=== PATIENT | male | born 1990 | race Caucasian/White ===

== ENCOUNTER → 2021-04-03 | Outpatient (CLI) | payer BC ==
--- NOTE | 2021-04-03 11:41 | CONS ---
CONSULTATION DATE OF SERVICE: 04/03/2021 This 50-year-old gentleman has been evaluated in the sleep center for possible obstructive sleep apnea-hypopnea syndrome. HISTORY OF PRESENT ILLNESS/SLEEP-WAKE EVALUATION: Patient's usual sleep schedule is from 10 or 11 p.m. until 6 or 6:30 a.m. on weekdays and until 8:30 or 9 a.m. on weekends. No problems with falling asleep, although he has a TV set in the bedroom. He usually sleeps on the back and side positions. He has loud snoring and witnessed episodes of stopped breathing during sleep. The patient wakes up with choking up to 4 times at night with up to 2 episodes of nocturia. No history of hypnagogic hallucinations, sleep paralysis or cataplexy. [place] Sleepiness Scale is 9. PAST MEDICAL HISTORY: Hypertension. PAST SURGICAL HISTORY: None. MEDICATIONS: Losartan 50 mg once a day. SOCIAL HISTORY: Negative for smoking. Alcohol consumption occasional. FAMILY HISTORY: Heart problems. REVIEW OF SYSTEMS: No fevers. No double vision. No recent chest pain. No shortness of breath. No abdominal pain. No bleeding episodes. No blood in the urine. No seizure episodes. Snoring, awakenings from sleep, episodes of sleepiness. PHYSICAL EXAMINATION: GENERAL: Pleasant gentleman without distress. VITAL SIGNS: BP 135/80, HR 88, RR 18, height 6 feet 0 inches, weight 333 pounds, body mass index 45, temperature 97.4, oxygen saturation at room air 96%. HEENT: PERRLA, EOMI, evaluation of oropharynx showed tongue protrudes midline. Extremely low position of soft palate; Mallampati IV. NECK: Supple, no JVD. Thyroid is not palpable. Neck is extremely wide at 20-1/2 inches in circumference. LUNGS: Clear to percussion and to auscultation. Good air exchange. No wheezing or rhonchi. HEART: S1, S2 regular. No murmurs, gallops, or rubs. ABDOMEN: Obese. EXTREMITIES: No clubbing or cyanosis. DRUG SAFETY ASSISTANT: Awake, alert, and oriented X3. Cranial nerves 2 to 7 intact. There is no fasciculation or atrophy. noted. No focal deficits observed. IMPRESSION: 1. Loud snoring, witnessed episodes of stopped breathing during sleep, extremely low position of soft palate, Mallampati IV, extremely wide neck at 20-1/2 inches in circumference; obstructive sleep apnea-hypopnea syndrome. 2. Obesity. Body mass index 45. 3. Hypertension. PLAN: 1. Home sleep apnea test for confirmation of obstructive sleep apnea-hypopnea syndrome 2. CPAP/BiPAP titration if sleep study confirms obstructive sleep apnea-hypopnea syndrome. 3. Preferable position during sleep on the side. 4. No driving if patient feels any sleepiness. 5. I will see patient for follow up visit to explain results of testing and following plan. Thank you very much for referring this patient for consultation. Sincerely, Cedric Ferreira MD, PhD, FAASM Diplomat of [place] [employer] Sleep Medicine Board of [place] [employer]visor [facility] [place] MMODL / THADN: [id number] /
== END ==
LOC: SLEEP 10:25
PROVIDERS: ATTEND Internal Medicine
DX: G47.33 Obstructive sleep apnea (adult) (pediatric) (principal); E66.9 Obesity, unspecified; I10 Essential (primary) hypertension; Z68.42 Body mass index [BMI] 45.0-49.9, adult; Z79.899 Other long term (current) drug therapy
CPT/HCPCS: 99202

== ENCOUNTER → 2024-01-10 | Outpatient (CLI) | payer BC ==
--- NOTE | 2024-01-10 12:01 | XR ---
EXAMINATION TYPE: XR KUB DATE OF EXAM: 01/10/2024 COMPARISON: NONE HISTORY: TECHNIQUE: One view abdominal series FINDINGS: The osseous structures are intact. The bowel gas pattern is nonspecific. Lung bases are clear. No definite calcifications overlying the renal outlines. There is a lobulated calcification left pelvis measuring a diameter 5 mm. IMPRESSION: 1. No renal calcifications. However, 5 mm left upper pelvic calcification could be in the course of t he left ureter.
== END | disposition home or self-care (01) ==
LOC: RADXRMAIN 11:39
PROVIDERS: ATTEND Urology
DX: N20.1 Calculus of ureter (principal)
CPT/HCPCS: 74018

== ENCOUNTER → 2024-02-21 | Outpatient (CLI) | payer BC | END | disposition home or self-care (01) | LOC: LABWHC1 07:00 | PROVIDERS: ATTEND Urology | DX: Z01.812 Encounter for preprocedural laboratory examination (principal); N20.1 Calculus of ureter | CPT/HCPCS: 87086 ==

== ENCOUNTER 2024-02-23 10:00 | Day surgery (SDC) | payer BC ==
[~2024-02-23 10:00] MED LIST: DEXAMETHASONE SOD PHOSPHATE 4 MG/ML 1 ML VIAL ONE; GLYCOPYRROLATE 0.2 MG/ML 2 ML VIAL ONE; LACTATED RINGERS 1,000 ML BAG ONE; LIDOCAINE 1% INJ 10MG/ML (20 ML MDV) ONE; MIDAZOLAM 2 MG/2 ML VIAL ONE; NEOSTIGMINE 1 MG/ML 10 ML VIAL ONE; ONDANSETRON 4 MG/2 ML VIAL ONE; PHENYLEPHRINE 10 MG/ML VIAL ONE; PROPOFOL 10 MG/ML 20 ML VIAL IV ONE; ROCURONIUM 10 MG/ML (5 ML VIAL) IV ONE; SUCCINYLCHOLINE CHLORIDE 200 MG/10 ML VIAL IV ONE; ceFAZolin 1 GM/50 ML BAG (PMX) ONE; fentaNYL (PF) 50 MCG/ML 2 ML AMP ONE
--- NOTE | 2024-03-03 15:53 | HP ---
HISTORY AND PHYSICAL PREOPERATIVE DIAGNOSIS: Left ureteral stone. PROCEDURE TO BE PERFORMED: Left ureteroscopy, laser lithotripsy. HISTORY: Mr. Starks is a 33-year-old gentleman who was in the [facility] back in the end of January. He had an x-ray identifying a 5-mm stone below the iliac vessels. He followed up in the office, the stone was still present. We discussed multiple treatment options including spontaneous passage, ureteroscopy, shockwave lithotripsy. The patient wished to proceed with possible shockwave, but then changed his mind and elected to proceed with a left ureteroscopy and laser lithotripsy. The patient comes for this surgical procedure. Risks, complications, and alternatives have been discussed. ALLERGIES: None. MEDICATIONS: 1. Carvedilol 12.5 mg b.i.d. 2. Hydrochlorothiazide 25 mg daily. 3. Losartan 100 mg daily. ALLERGIES: None. PAST SURGICAL HISTORY: Negative. MEDICAL ILLNESSES: Include hypertension and high blood pressure. REVIEW OF SYSTEMS: Negative. PHYSICAL EXAMINATION: GENERAL: He is a pleasant 33-year-old white male, no immediate distress. VITAL SIGNS: He is 331 pounds and 72 inches, blood pressure 118/70, pulse 82. HEENT: Clear. CHEST: Clear to auscultation. HEART: Without murmur or gallop. ABDOMEN: Soft, without mass or organomegaly. GENITOURINARY: Unremarkable. EXTREMITIES: No edema. NEUROLOGICAL: Grossly intact. IMPRESSION: This patient has a 5-mm distal ureteral stone on the left. He comes for left ureteroscopy, laser lithotripsy. MMODL / IJN: [id number] /
--- NOTE | 2024-03-03 15:53 | OP ---
OPERATIVE REPORT DATE OF SERVICE : 02/23/2024 PREOPERATIVE DIAGNOSIS: Left ureteral stone. POSTOPERATIVE DIAGNOSIS: Left ureteral stone. PROCEDURES: Cystoscopy, left ureteroscopy, laser lithotripsy, placement of a 6 x 26 stent. INDICATIONS FOR PROCEDURE: Carlos Starks is 33. He has a 6 mm impacted distal ureteral stone causing intermittent pain. He comes for left ureteroscopy, laser lithotripsy. The stone was seen on KUB preoperatively. DESCRIPTION OF PROCEDURE: The patient was brought to the operating suite, given a general anesthetic. Placed in lithotomy position with a sterile prep and drape. Cystoscopy for oblique lens and 21- Wallisian sheath identifies a normal urethra. The prostate was nonobstructing. The ureteral orifices were both normal. Bladder mucosa was unremarkable. We passed an 0.035 wire up to where on KUB the stone was thought to be and indeed it was impacted. I then dilated the ureteral orifice with a 10-Wallisian cone-tip. I then passed the semi- rigid scope up to the stone. With a 365 micron laser probe, the stone was broken into tiny fragments and flushed out of the ureter. There was a significant amount of edema, where the stone had lodged. Thus a stent will be placed. Through the ureteroscope, an 0.035 wire was passed up into the kidney. The ureteroscope was removed. The wire was backloaded on the cystoscope. Over the wire, a 6 x 26 double-J catheter was passed and coiled in the renal pelvis and in the bladder. The bladder was drained. The patient was awakened and returned to recovery room in good condition. He will be discharged home. Follow up in the office in 1 week for cysto and stent removal. MMODL / IJN: [id number] /
--- NOTE | 2024-03-27 14:13 | XR ---
Patient: Juan Manuel Starks Ordering Physician: Unknown, Unknown ID: [id number] Phone, Pager: Phone: N/A Pager: N/A : 1990 Age/Gender: 33Y, M Primary Location: N/A Procedure: XR KUB Study Date: 02/22 6:15:00 AM EXAMINATION TYPE: XR KUB DATE OF EXAM: 03/05/2024 12:30 PM CLINICAL INDICATION: Presurgical renal stone. COMPARISON: 01/10/2024. TECHNIQUE: One radiographic view of the abdomen was obtained. FINDINGS: The bowel gas pattern is nonspecific without dilated loops of small or large bowel. . Fecal material and gas are demonstrated throughout the colon and rectum. There is no evidence for organomegaly or pneumoperitoneum. The osseous structures are intact. Calcif ication in the left pelvis measuring 6 mm is present. IMPRESSION: 1. Left pelvis calcification possibly representing pelvic phlebolith versus ureteral calculus measur ing 6 mm. Similar to 01/10/2024. 2. No definitive Renal calculi visualized. There is bowel that obscures the kidneys correlate with C T. 3. Nonspecific bowel gas pattern without radiographic evidence for acute process.
--- NOTE | 2024-04-13 10:36 | FL ---
EXAMINATION TYPE: FL guidance operating room DATE OF EXAM: 03/21/2024 8:19 AM COMPARISON: Pre Operative Images if available both CT/MRI or plain film CLINICAL INDICATION: Male, 33 years old with history of LEFT RENAL CALCULI IN OR; TECHNIQUE: FL guidance operating room, multiple fluoroscopic images provided for procedure. Total fluoroscopy time: 33 seconds Total submitted images to PACS: 6 DAP: [id number] mGym2 Gycm2 uGym2 cGycm2 or equivalent. FINDINGS: Multiple intraoperative fluoroscopic images were taken resulting in ureteral stent placement with sup erior pigtail in appropriate position projecting over the renal pelvis. No immediate intraoperative c omplication. Multilevel degeneration changes throughout the spine. IMPRESSION: 1. No evidence for intraoperative complication. 2. Please see the operative/procedural note for further details. [facility], , 04/13/2024 10:33 AM
== END 2024-02-23 10:07 ==
LOC: OR 10:00
PROVIDERS: ATTEND Urology
DX: N20.1 Calculus of ureter (principal); I10 Essential (primary) hypertension; Z79.899 Other long term (current) drug therapy
CPT/HCPCS: 74018

== ENCOUNTER 2024-02-24 03:00 | Emergency (ER) | payer BC ==
[2024-02-24] MEDS ORDERED: ONDANSETRON 4 MG/2 ML VIAL ONE (06:16)
[2024-02-24] MEDS ORDERED: KETOROLAC 15 MG/ML 1 ML VIAL ONE ×2 (06:16→09:51)
[2024-02-24] MEDS ORDERED: HYDROmorphone 0.5 MG/0.5 ML SYRINGE ONE (06:17)
[2024-02-24] MEDS ORDERED: SODIUM CHLORIDE 0.9% 1,000 ML BAG ONE (06:40)
--- NOTE | 2024-03-31 13:43 | XR ---
Site ID [facility] Juan Manuel Watson ID [id number] Order # Procedure XR abdomen 1V EXAMINATION TYPE: XR abdomen 1V DATE OF EXAM: 02/24/2024 2:30 PM CLINICAL INDICATION: PT HAD LEFT STENT PLACED AND STONE REMOVED PAIN PRESSURE COMPARISON: THIS EXAM WAS READ DURING PACS DOWNTIME, NO PRIORS AVAILABLE. TECHNIQUE: One radiographic view of the abdomen was obtained. FINDINGS: The bowel gas pattern is nonspecific without dilated loops of small or large bowel. . Fecal material and gas are demonstrated throughout the colon and rectum. There is no evidence for organomegaly or pneumoperitoneum. The osseous structures are intact. Left ureteral stent with superior and inferior pigtails in in place. The superior pigtail at the ureterope lvic Junction the other in the right lateral aspect of the bladder. IMPRESSION: 1. Left ureteral stent with pigtail superiorly at the ureteropelvic junction and distal on the right lateral bladder. 2. Nonspecific bowel gas pattern without radiographic evidence for acute process.
== END 2024-02-24 09:54 | disposition home or self-care (01) ==
LOC: EC 03:00
CPT/HCPCS: 74018; 96361; 96374; 96375; 99284